=== PATIENT | male | born 1945 | race Hispanic/Latino ===

== ENCOUNTER → 2018-11-04 | Outpatient (CLI) | payer OTHER ==
[~2018-11-04] MED LIST: AMLO10TA7 PO; ATOR40TA71 PO; CHLO25TA3 PO; CHOL200059 PO; CYAN50008 PO; GLIP5TAB11 PO; METF-446 PO; METO25TA6 PO
== END | disposition home or self-care (01) ==
LOC: RAH 12:19
PROVIDERS: ATTEND Internal Medicine Cardiovascular Disease
DX: I50.43 Acute on chronic combined systolic (congestive) and diastolic (congestive) heart failure (principal); I70.0 Atherosclerosis of aorta; M13.812 Other specified arthritis, left shoulder; M13.811 Other specified arthritis, right shoulder
CPT/HCPCS: 71046